=== PATIENT | male | born 1980 ===

== ENCOUNTER 2018-08-24 14:55 | Emergency (ER) | payer OTHER ==
[2018-08-24 15:17] VITALS: BMI 27.8
[2018-08-24 15:20] VITALS: BP 120/79; PULSE 74; RESP 18; TEMP 99.2; O2SAT 100
--- NOTE | 2018-08-24 15:41 | C.PDOC ---
Chief Complaint (Nursing): Abnormal Skin Integrity Past Medical History Vital Signs: Last Vital Signs Temp 99.2 F 08/24/18 15:18 Pulse 74 08/24/18 15:18 Resp 18 08/24/18 15:18 BP 120/79 08/24/18 15:18 Pulse Ox 100 08/24/18 15:18 ED Course And Treatment O2 Sat by Pulse Oximetry: 100 Disposition Counseled Patient/Family Regarding: Diagnosis, Need For Followup, Rx Given - Disposition Referrals: [facility] [Outside] Disposition: HOME/ ROUTINE Disposition Time: 16:15 Condition: STABLE Prescriptions: Butenafine HCl [Lotrimin Ultra] 1 applic TP TID #1 tube Mupirocin 2% Cream [Bactroban Cream] 1 applic TOP BID #1 tube Instructions: Fungal Skin Rash (DC) Forms: [facility] (Japanese), Gen Discharge Inst Japanese - POA Present On Arrival: None - Clinical Impression Clinical Impression: Skin lesion, Fungal skin infection
== END 2018-08-24 16:46 | disposition home or self-care (01) ==
LOC: C.ER 14:55
DX: B36.9 Superficial mycosis, unspecified (principal); L98.9 Disorder of the skin and subcutaneous tissue, unspecified